=== PATIENT | female | born 1985 ===

== ENCOUNTER 2018-03-14 15:27 | Outpatient (CLI) | payer OTHER | END 2018-03-14 15:36 | disposition home or self-care (01) | LOC: MAMO-SONO 15:27 | DX: Z12.31 Encounter for screening mammogram for malignant neoplasm of breast (principal); N64.89 Other specified disorders of breast; N64.4 Mastodynia; N60.11 Diffuse cystic mastopathy of right breast ==

== ENCOUNTER 2022-03-18 11:29 | Outpatient (CLI) | payer OTHER | END 2022-03-18 11:39 | disposition home or self-care (01) | LOC: RAD 11:29 | PROVIDERS: ATTEND Physical Medicine & Rehabilitation | DX: M17.11 Unilateral primary osteoarthritis, right knee (principal); N60.19 Diffuse cystic mastopathy of unspecified breast; N63.0 Unspecified lump in unspecified breast; N60.11 Diffuse cystic mastopathy of right breast ==